=== PATIENT | male | born 1955 | race Caucasian/White ===

== ENCOUNTER 2019-05-29 16:04 | Outpatient (CLI) | payer MEDICARE, SELFPAY ==
[2019-05-29 19:12] LABS: Blood Urea Nitrogen 23 mg/dL (9-20); Calcium 9.4 mg/dL (8.4-10.2); Carbon Dioxide 26 mmol/L (22-30); Chloride 101 mmol/L (98-107); Estimated Glomerular Filt Rate > 60; Glucose 87 mg/dL (75-110); Potassium 4.6 mmol/L (3.4-5.0); Sodium 137 mmol/L (137-145)
== END 2019-05-29 16:05 | disposition home or self-care (01) ==
LOC: ANHLAB 16:06
PROVIDERS: PCP Family Medicine; Visit Provider Physician Assistant Medical
DX: E87.5 Hyperkalemia (principal)
CPT/HCPCS: 36415; 80048

== ENCOUNTER 2019-07-02 11:22 | Emergency (ER) | payer MEDICARE, SELFPAY ==
--- NOTE | ~2019-07-02 | XR_ITS ---
XR chest 2V DATE: 07/02/2019 12:27 INDICATION: Productive cough, shortness of breath. Smoker. TECHNIQUE: 2 views COMPARISON: 06/24/2014 2 view chest 06/21/2012 two-view chest FINDINGS: There is chronic increased density in the region of the left lower cardiac margin, dating b ack to 06/21/2012, likely due to cardiophrenic fat pad. No pulmonary infiltrate or consolidation, pleural effusion or pulmonary vascular congestion or pneumo thorax. Normal heart size. No hilar or mediastinal enlargement. Diffuse idiopathic skeletal hyperostosis of the thoracic spine. IMPRESSION: No active cardiopulmonary disease Reviewed, dictated and finalized at location A.
[2019-07-02 11:32] VITALS: BP 150/66; PULSE 76; RESP 18; TEMP 36.9; O2SAT 98
--- NOTE | 2019-07-02 11:57 | ED.URI ---
HPI - URI/Sore Throat General Chief Complaint: Upper Respiratory Infection Stated Complaint: Cough Time Seen by Provider: 07/02/19 12:06 Source: patient and RN notes reviewed Mode of arrival: ambulatory Limitations: no limitations History of Present Illness HPI Narrative: 64-year-old male presents with concern for fever, body aches, chills, cough for 10 days, he reports most of the symptoms are improving. Reports continuous copious clear rhinorrhea, reports cough, general malaise and fatigue. Reports he is a current occasional smoker. Denies history of emphysema, COPD, asthma. Denies current fever MD elicited complaint: cough and rhinorrhea Related Data Home Medications Medication Instructions Recorded Confirmed nitroglycerin 0.4 mg sublingual 0.4 mg SUBLINGUAL Q5M PRN 05/06/19 07/02/19 tablet Allergies Allergy/AdvReac Type Severity Reaction Status Date / Time No Known Allergies Allergy Unknown Verified 07/02/19 11:37 Review of Systems Review of Systems: Narrative: CONSTITUTIONAL: Reports malaise, fatigue. Denies chills, sweats, or fever. EYES: Denies visual changes, redness, or discharge. ENT: Reports rhinorrhea. Denies congestion, sinus pain, otalgia and sore throat. CARDIOVASCULAR: Denies chest pain, palpitations, or edema. RESPIRATORY: Reports cough. Denies dyspnea. GASTROINTESTINAL: Denies abdominal pain, nausea, vomiting, diarrhea SKIN: Denies rash or itching. MUSCULOSKELETAL: Denies myalgia. NEUROLOGIC: Denies headache. All systems reviewed & are unremarkable except as noted in HPI and below PMFSH Family History Family History (Updated 11/15/15 @ 23:19 by DOCTOR UNKNOWN) Father Hypertension Mother Family history of malignant neoplasm of breast in first degree relative Social History Social History Smoking status: Light tobacco smoker Alcohol intake: never Comments At time of signature, agree with nursing past medical, surgical, social and family history. There is no relevant family history pertinent to the presenting complaint Exam Narrative: Exam Narrative: GENERAL: Well-appearing, well-nourished, and in no acute distress. HEAD: Normocephalic EYES: PERRLA, conjunctivae clear ENT: Nares clear, turbinates edematous and erythematous, clear discharge. Mucous membranes moist. TM pearly martini with dull light reflex bilaterally; no tragal tenderness. Oropharynx not erythematous without lesions. Tonsils not enlarged and without exudate, no drooling, no hoarseness, no trismus, uvula midline. NECK: Supple. No lymphadenopathy CHEST: Scattered inspiratory and expiratory wheeze throughout, breath sounds equal. No rhonchi, rales, or stridor. No respiratory distress, speaks in full sentences. HEART: Regular rate and rhythm. No murmur heard. SKIN: Warm, dry, no rash. NEURO: Alert and oriented x3. PSYCH: Normal mood and affect Course Course Emergency Course: Patient is aware of diagnosis, understands and agrees to treatment plan. Anticipatory guidance given. Patient agrees to follow-up as directed and is aware of reasons to seek care at the emergency department. Portions of this record may have been created with voice recognition software Vital Signs Vital signs: Vital Signs Temperature 98.4 F 07/02/19 11:32 Pulse Rate 76 07/02/19 11:32 Respiratory Rate 18 07/02/19 11:32 Blood Pressure 150/66 H 07/02/19 11:32 Pulse Oximetry 98 07/02/19 11:32 Temperature 98.4 F 07/02/19 11:32 Pulse Rate 76 07/02/19 11:32 Respiratory Rate 18 07/02/19 11:32 Blood Pressure 150/66 H 07/02/19 11:32 Pulse Oximetry 98 07/02/19 11:32 Reviewed. Patient has current diagnosis of hypertension MDM - URI/Sore Throat MDM Narrative Medical decision making narrative: Differential diagnosis considered: Strep pharyngitis, allergic rhinitis, upper respiratory tract infection, sinusitis, rhinosinusitis, nasopharyngitis. viral pharyngitis, otitis media, otitis externa, pneumonia, bronchitis, v
== END 2019-07-02 13:10 | disposition home or self-care (01) ==
PROVIDERS: Emergency Provider Nurse Practitioner; PCP Family Medicine
DX: R06.2 Wheezing (principal); J34.89 Other specified disorders of nose and nasal sinuses; F17.200 Nicotine dependence, unspecified, uncomplicated; I10 Essential (primary) hypertension
CPT/HCPCS: 71046; 99213; G0463

== ENCOUNTER 2020-07-17 06:45 | Outpatient (CLI) | payer MEDICARE, SELFPAY ==
--- NOTE | 2020-07-17 06:46 | ECHO_ITS ---
Patient Info Name: Dayne Good Age: 65 years : 1955 Gender: Male Ht: 70 in Wt: 280 lbs BSA: 2.56 m2 HR: 61 bpm BP: 152 / 89 mmHg Heart Rhythm: Sinus Rhythm Exam Date: 07/17/2020 7:11 AM Exam Location: [facility] Pulmonary Patient Status: Outpatient Admit Date: 07/17/2020 Staff Ordering Physician: Zara Bowden PAC [place] Man: Namita Hoskins RDCS Attending Provider: Zara Bowden PAC Exam Type: CA echo doppler color flow Study Info Indications R01.1 - Cardiac murmur, unspecified Complete two-dimensional, color flow and Doppler transthoracic echocardiogram is performed. Summary 1. Complete two-dimensional, color flow and Doppler transthoracic echocardiogram is performed. 2. Left ventricular chamber dimension is mildly enlarged. 3. Left ventricular systolic function is normal, estimated at 60-65%. 4. The left ventricular diastolic function is grade II diastolic dysfunction. 5. E/e' 9 is minimally elevated. 6. There is mild aortic valve sclerosis. 7. There is mild to moderate aortic valve regurgitation. 8. No pulmonary hypertension, estimated pulmonary arterial systolic pressure is 39 mmHg. Left Ventricle E/e' 9 is minimally elevated. Left ventricular chamber dimension is mildly enlarged. Left ventricular systolic function is normal, estimated at 60-65%. The left ventricular diastolic function is grade II diastolic dysfunction. Right Ventricle Right ventricular chamber dimension is normal. Right ventricular systolic function is normal. Left Atria Left atrial chamber dimension is normal. Right Atria Right atrial chamber dimension is normal. Aortic Valve The aortic valve is trileaflet. There is mild aortic valve sclerosis. There is no aortic valve stenosis. There is mild to moderate aortic valve regurgitation. Pulmonic Valve There is no pulmonic regurgitation. Mitral Valve There is no mitral valve stenosis. There is no mitral valve regurgitation. Tricuspid Valve There is no tricuspid valve regurgitation. No pulmonary hypertension, estimated pulmonary arterial systolic pressure is 39 mmHg. Pericardium/Pleural There is no pericardial effusion. Inferior Vena Cava Normal inferior vena cava with >50% collapse upon inspiration consistent with normal right atrial pressure, 5 mmHg. Aorta The aortic root size at the sinus of Valsalva is normal. Left Ventricular Outflow Tract Name Value Normal LVOT 2D LVOT Diameter 2.2 cm LVOT Doppler LVOT Peak Gradient 4 mmHg LVOT Mean Gradient 2 mmHg LVOT VTI 26 cm LVOT VTI/AV VTI Ratio 0.4 LVOT Stroke Volume 102 ml LVOT CO 5.2 l/min LVOT CI 2.0 l/min/m2 Pulmonic Valve Name Value Normal RVOT Doppler
[2020-07-17 07:58] LABS: Alanine Aminotransferase 17 U/L (4-50); Alkaline Phosphatase 95 U/L (38-126); Anion Gap 3 mmol/L (8-16); Aspartate Amino Transferase 26 U/L (17-59); Bilirubin,Total 0.3 mg/dL (0.2-1.3); Blood Urea Nitrogen 20 mg/dL (9-20); Calcium 9.1 mg/dL (8.4-10.2); Carbon Dioxide 31 mmol/L (22-30); Chloride 106 mmol/L (98-107); Cholesterol 153 mg/dL (0-200); Estimated Glomerular Filt Rate 55; Glucose 101 mg/dL (75-110); HDL Direct 41 mg/dL; Potassium 4.9 mmol/L (3.4-5.0); Sodium 140 mmol/L (137-145); Triglycerides 53 mg/dL (<150)
[2020-07-17 08:09] LABS: LDL Cholesterol Direct 98 mg/dL
[2020-07-17 08:30] LABS: Prostate Specific Antigen 1.6 ng/mL (< OR = 4.0)
[2020-07-17 09:20] LABS: Hematocrit 48.5 % (42.0-52.0); Hemoglobin 15.4 g/dL (14.0-18.0); Mean Corpuscular HGB Conc 31.8 g/dl (32-36); Mean Corpuscular Hemoglobin 30.3 pg (26-34); Mean Corpuscular Volume 95.3 fl (80-100); Mean Platelet Volume 9.6 fl (7.4-10.4); Platelet Count Result 270 k/mm3 (150-375); Red Blood Count 5.09 M/mm3 (4.6-6.20); Red Cell Distribution Width 14.2 % (11.5-14.5)
== END 2020-07-17 06:46 | disposition home or self-care (01) ==
LOC: ANHCARD 06:46
PROVIDERS: PCP Family Medicine; Visit Provider Physician Assistant Medical
DX: Z12.5 Encounter for screening for malignant neoplasm of prostate (principal); R01.1 Cardiac murmur, unspecified; E78.2 Mixed hyperlipidemia; I11.9 Hypertensive heart disease without heart failure; I35.1 Nonrheumatic aortic (valve) insufficiency; I70.0 Atherosclerosis of aorta
CPT/HCPCS: 36415; 80053; 80061; 84153; 85027; 93306; G0103

== ENCOUNTER 2020-08-26 10:18 | Outpatient (CLI) | payer MEDICARE, SELFPAY ==
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
== END 2020-08-26 10:19 | disposition home or self-care (01) ==
LOC: ANHIMG 10:19
PROVIDERS: PCP Family Medicine; Visit Provider Internal Medicine Cardiovascular Disease
DX: I65.23 Occlusion and stenosis of bilateral carotid arteries (principal); I25.10 Atherosclerotic heart disease of native coronary artery without angina pectoris
CPT/HCPCS: 93880

== ENCOUNTER 2021-08-28 18:08 | Emergency (ER) | payer MEDICARE, SELFPAY ==
--- NOTE | ~2021-08-28 | XR_ITS ---
EXAMINATION: XR facial bones min 3V DATE: 08/28/2021 18:30 INDICATION: Left-sided nasal pain. Nasal swelling. Injury. TECHNIQUE: 5 views of the facial bones were obtained. COMPARISON: None. FINDINGS: Bone alignment is normal. There are transverse fractures of the nasal bones. There is opaci fication of the paranasal sinuses, worst in left maxillary sinus. IMPRESSION: 1. Fractures of the nasal bones. Reviewed, dictated and finalized at location A.
[2021-08-28 18:10] VITALS: BP 178/82; PULSE 92; RESP 17; TEMP 36.4; O2SAT 100
[2021-08-28 21:34] VITALS: PULSE 83; RESP 20; O2SAT 95
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
== END 2021-08-28 21:36 | disposition home or self-care (01) ==
LOC: ANHED 21:27
PROVIDERS: Emergency Provider Emergency Medicine; PCP Family Medicine
DX: S02.2XXA Fracture of nasal bones, initial encounter for closed fracture (principal); F17.210 Nicotine dependence, cigarettes, uncomplicated; Y04.2XXA Assault by strike against or bumped into by another person, initial encounter
CPT/HCPCS: 70150; 99283

== ENCOUNTER 2022-10-08 07:35 | Outpatient (CLI) | payer MEDICARE, SELFPAY ==
[2022-10-08 07:59] LABS: Basophils Absolute Auto 0.1 K/mm3 (0.0-0.1); Eosinophils Absolute Auto 0.3 K/mm3 (0-0.3); Eosinophils Percent Auto 3.7 % (0-4.4); Hemoglobin 15.9 g/dL (14.0-18.0); Immature Granulocyte Absolute 0.02 K/mm3 (0.00-0.031); Immature Granulocyte Percent A 0.3 % (0-0.5); Lymphocytes Absolute Auto 1.96 K/mm3 (0.9-3.2); Lymphocytes Percent Auto 27.1 % (18.3-44.2); Mean Corpuscular HGB Conc 31.8 g/dl (32-36); Mean Corpuscular Hemoglobin 31.3 pg (26-34); Mean Corpuscular Volume 98.4 fl (80-100); Monocytes Absolute Auto 0.6 K/mm3 (0.1-0.6); Monocytes Percent Auto 7.6 % (2.6-8.5); Neutrophils Absolute Auto 4.4 K/mm3 (1.3-6.7); Neutrophils Percent Auto 60.3 % (45.5-73.1); Platelet Count Result 234 k/mm3 (150-375); Red Blood Count 5.08 M/mm3 (4.6-6.20); Red Cell Distribution Width 13.7 % (11.5-14.5); White Blood Count 7.2 K/mm3 (4.5-10.0)
[2022-10-08 08:10] LABS: Alanine Aminotransferase 21 U/L (6-50); Albumin Level 4.4 g/dL (3.5-5.1); Alkaline Phosphatase 96 U/L (38-126); Anion Gap 5 mmol/L (8-16); Aspartate Amino Transferase 33 U/L (17-59); Bilirubin,Total 0.9 mg/dL (0.2-1.3); Blood Urea Nitrogen 13 mg/dL (9-20); Calcium 9.1 mg/dL (8.4-10.2); Carbon Dioxide 33 mmol/L (22-30); Chloride 101 mmol/L (98-107); Cholesterol 170 mg/dL (0-200); Estimated Glomerular Filt Rate > 60; Glucose 107 mg/dL (65-110); HDL Direct 43 mg/dL; Potassium 5.2 mmol/L (3.4-5.0); Sodium 139 mmol/L (137-145); Triglycerides 91 mg/dL (<150)
[2022-10-08 08:20] LABS: LDL Cholesterol Direct 112 mg/dL
[2022-10-08 08:40] LABS: Prostate Specific Antigen 1.2 ng/mL (< OR = 4.0)
== END 2022-10-08 07:36 | disposition home or self-care (01) ==
PROVIDERS: PCP Family Medicine; Visit Provider Family Medicine
DX: Z12.5 Encounter for screening for malignant neoplasm of prostate (principal); Z13.220 Encounter for screening for lipoid disorders; Z13.0 Encounter for screening for diseases of the blood and blood-forming organs and certain disorders involving the immune mechanism; E78.5 Hyperlipidemia, unspecified
CPT/HCPCS: 36415; 80053; 80061; 84153; 85025; G0103

== ENCOUNTER 2024-06-18 18:34 | Emergency (ER) | payer MEDICARE, SELFPAY ==
[2024-06-18 18:46] VITALS: BP 137/69; PULSE 83; RESP 16; TEMP 36.3; O2SAT 98
[2024-06-18 20:49] LABS: Basophils Percent Auto 0.3 % (0.2-1.2); Eosinophils Absolute Auto 0.1 K/mm3 (0-0.3); Eosinophils Percent Auto 0.5 % (0-4.4); Hematocrit 49.4 % (42.0-52.0); Hemoglobin 16.4 g/dL (14.0-18.0); Immature Granulocyte Percent A 1.1 % (0-0.5); Lymphocytes Absolute Auto 1.23 K/mm3 (0.9-3.2); Mean Corpuscular HGB Conc 33.2 g/dl (32-36); Mean Corpuscular Hemoglobin 30.7 pg (26-34); Mean Corpuscular Volume 92.5 fl (80-100); Mean Platelet Volume 9.8 fl (7.4-10.4); Monocytes Absolute Auto 0.8 K/mm3 (0.1-0.6); Monocytes Percent Auto 8.2 % (2.6-8.5); Neutrophils Absolute Auto 7.3 K/mm3 (1.3-6.7); Neutrophils Percent Auto 76.9 % (45.5-73.1); Platelet Count Result 294 k/mm3 (150-375); Red Blood Count 5.34 M/mm3 (4.6-6.20); Red Cell Distribution Width 14.3 % (11.5-14.5); White Blood Count 9.4 K/mm3 (4.5-10.0)
[2024-06-18 20:54] LABS: Influenza A QL RT-PCR Negative (Negative); Influenza B QL RT-PCR Negative (Negative); RSV RNA, RT-PCR Negative (Negative); SARS-CoV-2 RNA PCR Negative (Negative)
--- NOTE | 2024-06-18 20:54 | ED.GENADULT ---
HPI - General Adult General Chief complaint: Unspecified <Pricila Juarez PA-C - Last Filed: 06/20/24 18:15> Stated complaint: sick for days <Pricila Juarez PA-C - Last Filed: 06/20/24 18:15> Time Seen by Provider: 06/18/24 20:12 <Pricila Juarez PA-C - Last Filed: 06/20/24 18:15> Source: patient <Pricila Juarez PA-C - Last Filed: 06/20/24 18:15> Mode of arrival: ambulatory <Pricila Juarez PA-C - Last Filed: 06/20/24 18:15> Limitations: no limitations <Pricila Juarez PA-C - Last Filed: 06/20/24 18:15> History of Present Illness HPI narrative: This is a 69-year-old male that presents to the emergency department for generalized weakness. Reports he has been ill over the last week. Reports decreased appetite, nausea. Reports myalgias. Reports a cough diarrhea. Denies fevers, vomiting. <Pricila Juarez PA-C - Last Filed: 06/20/24 18:15> Related Data Allergies/adverse reactions: Allergies Allergy/AdvReac Type Severity Reaction Status Date / Time [id number] Reductase AdvReac Intermediate muscle Verified 06/18/24 20:14 Inhibitor (Silzrvb-Utw-Ytq aches Reductase Inhibitor) <Pricila Juarez PA-C - Last Filed: 06/20/24 18:15> Review of Systems Review of Systems: CONSTITUTIONAL: Denies fever ENT: Denies rhinorrhea, congestion, sore throat RESPIRATORY: Reports cough GASTROINTESTINAL: Reports nausea and diarrhea. Denies abdominal pain, vomiting GENITOURINARY: Denies dysuria NEUROLOGIC: Reports weakness. <Pricila Juarez PA-C - Last Filed: 06/20/24 18:15> All systems reviewed & are unremarkable except as noted in HPI and below <Pricila Juarez PA-C - Last Filed: 06/20/24 18:15> [facility] Past Medical History Medical History: Medical History (Updated 06/20/24 @ 09:20 by Pricila Juarez PA-C) Chronic knee pain Coronary artery disease Groin pain BMI 36.0-36.9,adult BMI 34.0-34.9,adult COVID-19 BMI 37.0-37.9, adult BMI 38.0-38.9,adult <Pricila Juarez PA-C - Last Filed: 06/20/24 18:15> Surgical History Surgical History: Surgical History History of nasal surgery History of tooth extraction <Pricila Juarez PA-C - Last Filed: 06/20/24 18:15> Family History Family History: Family History Father Hypertension Mother Family history of malignant neoplasm of breast in first degree relative Sibling <Pricila Juarez PA-C - Last Filed: 06/20/24 18:15> Social History Social History: Social History Smoking packs per day: 0.50 Smoking cigarettes per day: 10.0 Years smoked: 30 Smoking pack-years: 15.00 Smoking status: Current every day smoker Tobacco type: cigarettes Second hand tobacco smoke exposure: No Alcohol intake: current Substance use: never Substance use type: does not use Living arrangements: alone Occupation/Education: retired Additional occupation/education comments: [employer] Gender identity (if verbalized by the patient): Male <Pricila Juarez PA-C - Last Filed: 06/20/24 18:15> Exam Narrative: GENERAL: Well-appearing, well-nourished, and in no acute distress. HEAD: Normocephalic, atraumatic. EYES: EOMI. ENT: Nares clear, no rhinorrhea or epistaxis. Mucous membranes moist. Oropharynx without tonsillar hypertrophy exudate or other lesions. Bilateral TMs pearly martini non-bulging NECK: Supple. No adenopathy or masses. CHEST: Clear to auscultation. No respiratory distress. No wheezes rales or rhonchi HEART: Regular rate and rhythm. No murmur heard. Normal peripheral pulses. ABDOMEN: Soft, nontender, nondistended, normal active bowel sounds. EXTREMITIES: Normal range of motion. No edema. SKIN: Warm, dry, no rash. NEURO: No focal deficits. Alert and oriented x3. PSYCH: Normal mood and affect <Pricila Juarez PA-C - Last Filed: 06/20/24 18:15> Course PROFESSOR OF MUSIC/PA Physician Supervision For this patient encounter, I reviewed the PROFESSOR OF MUSIC or PA documentation, treatment plan, and medical decision making; and I had [id number] time with this patient. <Israel Maldonado MD - Last Filed: 06/19/24 07:20> Consultations Consultation #1: Spoke with Dr. Jw hamm about findings of possible esophageal perforation, recommends transfer for higher level of care <Pricila Juarez PA-C - Last Filed: 06/20/24 18:15> Date: 06/19/24 <Pricila Juarez PA-C - Last Filed: 06/20/24 18:15> Vital Signs Vital signs: Vital Signs Temperature 97.4 F L 06/18/24 18:46 Pulse Rate 83 06/18/24 18:46 Respiratory Rate 16 06/18/24 18:46 Blood Pressure 137/69 06/18/24 18:46 Pulse Oximetry 98 06/18/24 18:46 Oxygen Delivery Room Air 06/18/24 18:46 Temperature 97.6 F 06/19/24 07:33 Pulse Rate 88 06/19/24 07:33 Respiratory Rate 17 06/19/24 07:33 Blood Pressure 122/65 06/19/24 07:33 Pulse Oximetry 96 06/19/24 07:33 Oxygen Delivery Nasal Cannula 06/19/24 04:49 Oxygen Flow Rate 2 06/19/24 04:49 <Pricila Juarez PA-C - Last Filed: 06/20/24 18:15> Vital Signs Temperature 97.4 F L 06/18/24 18:46 Pulse Rate 83 06/18/24 18:46 Respiratory Rate 16 06/18/24 18:46 Blood Pressure 137/69 06/18/24 18:46 Pulse Oximetry 98 06/18/24 18:46 Oxygen Delivery Room Air 06/18/24 18:46 Temperature 97.6 F 06/19/24 07:33 Pulse Rate 88 06/19/24 07:33 Respiratory Rate 17 06/19/24 07:33 Blood Pressure 122/65 06/19/24 07:33 Pulse Oximetry 96 06/19/24 07:33 Oxygen Delivery Nasal Cannula 06/19/24 04:49 Oxygen Flow Rate 2 06/19/24 04:49 <Israel Maldonado MD - Last Filed: 06/19/24 07:20> Medical Decision Making MDM Narrative Medical decision making narrative: Patient presents to the emergency department for epigastric discomfort, decreased appetite, nausea. Patient is afebrile and nontoxic appearing. Cbc without leukocytosis. Metabolic panel without evidence of acute kidney injury and dehydration. Lipase is normal. Urine without evidence of infection. CT abdomen pelvis showing findings of gastritis, left lower lobe pneumonia. Possible evidence of contained esophageal perforation. Spoke with Dr. Jw hamm about findings of possible esophageal perforation, recommends transfer for higher level of care. I have reached out to [facility] for transfer. Care taken over by Dr. Maldonado at shift change The case was discussed with Dr. Porter with cardiothoracic surgery at [facility] and the patient was accepted and is currently waiting on a bed Radiology reread this CT scan in showed no evidence of perforation and just esophageal diverticula. <Pricila Juarez PA-C - Last Filed: 06/20/24 18:15> The case was discussed with Dr. Porter with cardiothoracic surgery at [facility] and the patient was accepted and is currently waiting on a bed Radiology reread this CT scan in showed no evidence of perforation and just esophageal diverticula. <Israel Maldonado MD - Last Filed: 06/19/24 07:20> Vital Signs Vital Signs: Vital Signs Temperature 97.4 F L 06/18/24 18:46 Pulse Rate 83 06/18/24 18:46 Respiratory Rate 16 06/18/24 18:46 Blood Pressure 137/69 06/18/24 18:46 Pulse Oximetry 98 06/18/24 18:46 Oxygen Delivery Room Air 06/18/24 18:46 Temperature 97.6 F 06/19/24 07:33 Pulse Rate 88 06/19/24 07:33 Respiratory Rate 17 06/19/24 07:33 Blood Pressure 122/65 06/19/24 07:33 Pulse Oximetry 96 06/19/24 07:33 Oxygen Delivery Nasal Cannula 06/19/24 04:49 Oxygen Flow Rate 2 06/19/24 04:49 <Pricila Juarez PA-C - Last Filed: 06/20/24 18:15> Vital Signs Temperature 97.4 F L 06/18/24 18:46 Pulse Rate 83 06/18/24 18:46 Respiratory Rate 16 06/18/24 18:46 Blood Pressure 137/69 06/18/24 18:46 Pulse Oximetry 98 06/18/24 18:46 Oxygen Delivery Room Air 06/18/24 18:46 Temperature 97.6 F 06/19/24 07:33 Pulse Rate 88 06/19/24 07:33 Respiratory Rate 17 06/19/24 07:33 Blood Pressure 122/65 06/19/24 07:33 Pulse Oximetry 96 06/19/24 07:33 Oxygen Delivery Nasal Cannula 06/19/24 04:49 Oxygen Flow Rate 2 06/19/24 04:49 <Israel Maldonado MD - Last Filed: 06/19/24 07:20> Lab Data Lab results reviewed: Yes I reviewed the patient's lab results. <Pricila Juarez PA-C - Last Filed: 06/20/24 18:15> Result diagrams: 06/18/24 20:40 06/18/24 20:40 <Pricila Juarez PA-C - Last Filed: 06/20/24 18:15> Labs: Lab Results 06/18/24 06/18/24 06/18/24 Range/Units 20:12 20:39 20:40 WBC 9.4 (4.5-10.0) K/mm3 RBC 5.34 (4.6-6.20) M/mm3 Hgb 16.4 (14.0-18.0) g/dL Hct 49.4 (42.0-52.0) % MCV 92.5 (80-100) fl MCH 30.7 (26-34) pg MCHC 33.2 (32-36) g/dl RDW 14.3 (11.5-14.5) % Plt Count 294 (150-375) k/mm3 MPV 9.8 (7.4-10.4) fl Immature Gran % (Auto) 1.1 H (0-0.5) % Neut % (Auto) 76.9 H (45.5-73.1) % Lymph % (Auto) 13.0 L (18.3-44.2) % Frio % (Auto) 8.2 (2.6-8.5) % Eos % (Auto) 0.5 (0-4.4) % Baso % (Auto) 0.3 (0.2-1.2) % Lymph # (Auto) 1.23 (0.9-3.2) K/mm3 Frio # (Auto) 0.8 H (0.1-0.6) K/mm3 Eos # (Auto) 0.1 (0-0.3) K/mm3 Baso # (Auto) 0.0 (0.0-0.1) K/mm3 Abs Immat Gran (auto) 0.10 H (0.00-0.031) K/mm3 Absolute Neuts (auto) 7.3 H (1.3-6.7) K/mm3 Absolute Nucleated RBC 0.000 (0.0-0.012) K/mm3 Nucleated RBC % 0.0 (0.0-0.2) % Sodium 136 L (137-145) mmol/L Potassium 4.2 (3.4-5.0) mmol/L Chloride 100 (98-107) mmol/L Carbon Dioxide 21 L (22-30) mmol/L Anion Gap 15 H (4-12) mmol/L BUN 52 H D (9-20) mg/dL Creatinine 1.66 H (0.7-1.3) mg/dL Estim Creat Clear Calc 48 ml/min Estimated GFR 41 L (59 - ) Glucose 117 H (65-110) mg/dL Calcium 9.9 (8.4-10.2) mg/dL Total Bilirubin 0.9 (0.2-1.3) mg/dL AST 237 H (17-59) U/L ALT 237 H (6-50) U/L Alkaline Phosphatase 136 H (38-126) U/L Total Creatine Kinase 73 (55-170) U/L Total Protein 8.0 (6.3-8.2) g/dL Albumin 3.9 (3.5-5.1) g/dL Lipase 173 (23-300) U/L Urine Color (Yellow) Urine Appearance (Clear) Urine pH (5.0-9.0) Ur Specific Valier (1.001-1.035) Urine Protein (Negative) mg/dL Urine Glucose (UA) (Negative) mg/dL Urine Ketones (Negative) mg/dL Ur Blood (Man) (Negative) Urine Nitrate (Negative) Urine Bilirubin (Negative) Urine Urobilinogen (<2.0) mg/dL Add Ur Microanalysis Leukocyte Esterase Rfl (Negative) YUDI/UL Urine RBC (0-2) /hpf Urine WBC (0-3) /hpf Ur Squamous Epith Cells (Few) /hpf Urine Bacteria /hpf Urine Casts Influenza A (RT-PCR) Negative (Negative) Influenza B (RT-PCR) Negative (Negative) RSV (RT-PCR) Negative (Negative) SARS-CoV-2 RNA (RT-PCR) Negative (Negative) 06/18/24 Range/Units 20:43 WBC (4.5-10.0) K/mm3 RBC (4.6-6.20) M/mm3 Hgb (14.0-18.0) g/dL Hct (42.0-52.0) % MCV (80-100) fl MCH (26-34) pg MCHC (32-36) g/dl RDW (11.5-14.5) % Plt Count (150-375) k/mm3 MPV (7.4-10.4) fl Immature Gran % (Auto) (0-0.5) % Neut % (Auto) (45.5-73.1) % Lymph % (Auto) (18.3-44.2) % Frio % (Auto) (2.6-8.5) % Eos % (Auto) (0-4.4) % Baso % (Auto) (0.2-1.2) % Lymph # (Auto) (0.9-3.2) K/mm3 Frio # (Auto) (0.1-0.6) K/mm3 Eos # (Auto) (0-0.3) K/mm3 Baso # (Auto) (0.0-0.1) K/mm3 Abs Immat Gran (auto) (0.00-0.031) K/mm3 Absolute Neuts (auto) (1.3-6.7) K/mm3 Absolute Nucleated RBC (0.0-0.012) K/mm3 Nucleated RBC % (0.0-0.2) % Sodium (137-145) mmol/L Potassium (3.4-5.0) mmol/L Chloride (98-107) mmol/L Carbon Dioxide (22-30) mmol/L Anion Gap (4-12) mmol/L BUN (9-20) mg/dL Creatinine (0.7-1.3) mg/dL Estim Creat Clear Calc ml/min Estimated GFR (59 - ) Glucose (65-110) mg/dL Calcium (8.4-10.2) mg/dL Total Bilirubin (0.2-1.3) mg/dL AST (17-59) U/L ALT (6-50) U/L Alkaline Phosphatase (38-126) U/L Total Creatine Kinase (55-170) U/L Total Protein (6.3-8.2) g/dL Albumin (3.5-5.1) g/dL Lipase (23-300) U/L Urine Color Dark yellow (Yellow) Urine Appearance Cloudy H (Clear) Urine pH 5.0 (5.0-9.0) Ur Specific Valier 1.017 (1.001-1.035) Urine Protein Trace (Negative) mg/dL Urine Glucose (UA) Negative (Negative) mg/dL Urine Ketones Trace H (Negative) mg/dL Ur Blood (Man) 2+ H (Negative) Urine Nitrate Negative (Negative) Urine Bilirubin Negative (Negative) Urine Urobilinogen 1.0 (<2.0) mg/dL Add Ur Microanalysis Reviewed Leukocyte Esterase Rfl Negative (Negative) YUDI/UL Urine RBC 11-20 H (0-2) /hpf Urine WBC 0-5 (0-3) /hpf Ur Squamous Epith Cells Few (Few) /hpf Urine Bacteria None seen /hpf Urine Casts 11-20 Influenza A (RT-PCR) (Negative) Influenza B (RT-PCR) (Negative) RSV (RT-PCR) (Negative) SARS-CoV-2 RNA (RT-PCR) (Negative) <Pricila Juarez PA-C - Last Filed: 06/20/24 18:15> Lab Results 06/18/24 06/18/24 06/18/24 Range/Units 20:12 20:39 20:40 WBC 9.4 (4.5-10.0) K/mm3 RBC 5.34 (4.6-6.20) M/mm3 Hgb 16.4 (14.0-18.0) g/dL Hct 49.4 (42.0-52.0) % MCV 92.5 (80-100) fl MCH 30.7 (26-34) pg MCHC 33.2 (32-36) g/dl RDW 14.3 (11.5-14.5) % Plt Count 294 (150-375) k/mm3 MPV 9.8 (7.4-10.4) fl Immature Gran % (Auto) 1.1 H (0-0.5) % Neut % (Auto) 76.9 H (45.5-73.1) % Lymph % (Auto) 13.0 L (18.3-44.2) % Frio % (Auto) 8.2 (2.6-8.5) % Eos % (Auto) 0.5 (0-4.4) % Baso % (Auto) 0.3 (0.2-1.2) % Lymph # (Auto) 1.23 (0.9-3.2) K/mm3 Frio # (Auto) 0.8 H (0.1-0.6) K/mm3 Eos # (Auto) 0.1 (0-0.3) K/mm3 Baso # (Auto) 0.0 (0.0-0.1) K/mm3 Abs Immat Gran (auto) 0.10 H (0.00-0.031) K/mm3 Absolute Neuts (auto) 7.3 H (1.3-6.7) K/mm3 Absolute Nucleated RBC 0.000 (0.0-0.012) K/mm3 Nucleated RBC % 0.0 (0.0-0.2) % Sodium 136 L (137-145) mmol/L Potassium 4.2 (3.4-5.0) mmol/L Chloride 100 (98-107) mmol/L Carbon Dioxide 21 L (22-30) mmol/L Anion Gap 15 H (4-12) mmol/L BUN 52 H D (9-20) mg/dL Creatinine 1.66 H (0.7-1.3) mg/dL Estim Creat Clear Calc 48 ml/min Estimated GFR 41 L (59 - ) Glucose 117 H (65-110) mg/dL Calcium 9.9 (8.4-10.2) mg/dL Total Bilirubin 0.9 (0.2-1.3) mg/dL AST 237 H (17-59) U/L ALT 237 H (6-50) U/L Alkaline Phosphatase 136 H (38-126) U/L Total Creatine Kinase 73 (55-170) U/L Total Protein 8.0 (6.3-8.2) g/dL Albumin 3.9 (3.5-5.1) g/dL Lipase 173 (23-300) U/L Urine Color (Yellow) Urine Appearance (Clear) Urine pH (5.0-9.0) Ur Specific Valier (1.001-1.035) Urine Protein (Negative) mg/dL Urine Glucose (UA) (Negative) mg/dL Urine Ketones (Negative) mg/dL Ur Blood (Man) (Negative) Urine Nitrate (Negative) Urine Bilirubin (Negative) Urine Urobilinogen (<2.0) mg/dL Add Ur Microanalysis Leukocyte Esterase Rfl (Negative) YUDI/UL Urine RBC (0-2) /hpf Urine WBC (0-3) /hpf Ur Squamous Epith Cells (Few) /hpf Urine Bacteria /hpf Urine Casts Influenza A (RT-PCR) Negative (Negative) Influenza B (RT-PCR) Negative (Negative) RSV (RT-PCR) Negative (Negative) SARS-CoV-2 RNA (RT-PCR) Negative (Negative) 06/18/24 Range/Units 20:43 WBC (4.5-10.0) K/mm3 RBC (4.6-6.20) M/mm3 Hgb (14.0-18.0) g/dL Hct (42.0-52.0) % MCV (80-100) fl MCH (26-34) pg MCHC (32-36) g/dl RDW (11.5-14.5) % Plt Count (150-375) k/mm3 MPV (7.4-10.4) fl Immature Gran % (Auto) (0-0.5) % Neut % (Auto) (45.5-73.1) % Lymph % (Auto) (18.3-44.2) % Frio % (Auto) (2.6-8.5) % Eos % (Auto) (0-4.4) % Baso % (Auto) (0.2-1.2) % Lymph # (Auto) (0.9-3.2) K/mm3 Frio # (Auto) (0.1-0.6) K/mm3 Eos # (Auto) (0-0.3) K/mm3 Baso # (Auto) (0.0-0.1) K/mm3 Abs Immat Gran (auto) (0.00-0.031) K/mm3 Absolute Neuts (auto) (1.3-6.7) K/mm3 Absolute Nucleated RBC (0.0-0.012) K/mm3 Nucleated RBC % (0.0-0.2) % Sodium (137-145) mmol/L Potassium (3.4-5.0) mmol/L Chloride (98-107) mmol/L Carbon Dioxide (22-30) mmol/L Anion Gap (4-12) mmol/L BUN (9-20) mg/dL Creatinine (0.7-1.3) mg/dL Estim Creat Clear Calc ml/min Estimated GFR (59 - ) Glucose (65-110) mg/dL Calcium (8.4-10.2) mg/dL Total Bilirubin (0.2-1.3) mg/dL AST (17-59) U/L ALT (6-50) U/L Alkaline Phosphatase (38-126) U/L Total Creatine Kinase (55-170) U/L Total Protein (6.3-8.2) g/dL Albumin (3.5-5.1) g/dL Lipase (23-300) U/L Urine Color Dark yellow (Yellow) Urine Appearance Cloudy H (Clear) Urine pH 5.0 (5.0-9.0) Ur Specific Valier 1.017 (1.001-1.035) Urine Protein Trace (Negative) mg/dL Urine Glucose (UA) Negative (Negative) mg/dL Urine Ketones Trace H (Negative) mg/dL Ur Blood (Man) 2+ H (Negative) Urine Nitrate Negative (Negative) Urine Bilirubin Negative (Negative) Urine Urobilinogen 1.0 (<2.0) mg/dL Add Ur Microanalysis Reviewed Leukocyte Esterase Rfl Negative (Negative) YUDI/UL Urine RBC 11-20 H (0-2) /hpf Urine WBC 0-5 (0-3) /hpf Ur Squamous Epith Cells Few (Few) /hpf Urine Bacteria None seen /hpf Urine Casts 11-20 Influenza A (RT-PCR) (Negative) Influenza B (RT-PCR) (Negative) RSV (RT-PCR) (Negative) SARS-CoV-2 RNA (RT-PCR) (Negative) <Israel Maldonado MD - Last Filed: 06/19/24 07:20> Imaging Data Radiologist's impression: ITS Impressions Chest X-Ray 06/18/24 20:40 IMPRESSION: Left basilar atelectasis versus pneumonia. CT abdomen/pelvis: Hepatic steatosis and nodular contour suggesting cirrhosis. No evidence of cholelithiasis or cholecystitis. Distal gastric/pyloric mural thickening and adjacent stranding may reflect underlying gastritis/ulcer disease. No free air or ascites. No bowel obstruction. Normal appendix. Diverticulosis. No hydronephrosis or renal calculus. Urinary bladder wall thickening, nonspecific. Correlate with urinalysis. Patchy left basilar ground-glass/nodular infiltrates, may reflect infection/inflammation and/or aspiration. Distal esophageal diverticulum with food stuff or contained perforation. Fat containing umbilical hernia. Bilateral sacroiliac joint arthropathy ITS Impressions Chest X-Ray 06/18/24 20:40 IMPRESSION: Left basilar atelectasis versus pneumonia. Abdomen/Pelvis CT 06/19/24 06:04 Impression: Possible minimally nodular contour of liver. Correlate for cirrhotic change. Left basilar consolidation is suspicious for left lower lobe pneumonia. Moderate fat-containing umbilical hernia. <Pricila Juarez PA-C - Last Filed: 06/20/24 18:15> Critical Care Time Critical Care Time Critical Care Time: Yes <Pricila Juarez PA-C - Last Filed: 06/20/24 18:15> Total Critical Care Time: 35 <Pricila Juarez PA-C - Last Filed: 06/20/24 18:15> Discharge Plan Discharge Clinical Impression: Acute kidney injury, Esophageal diverticulum Gastritis Qualifiers: Gastritis type: unspecified gastritis Chronicity: acute Gastritis bleeding: without bleeding Qualified Code(s): K29.00 - Acute gastritis without bleeding Left lower lobe pneumonia Qualifiers: Pneumonia type: due to unspecified organism Qualified Code(s): J18.9 - Pneumonia, unspecified organism <Pricila Juarez PA-C - Last Filed: 06/20/24 18:15> Patient Disposition: Home, Self-Care <KARTHIK Ortega Last Filed: 06/20/24 18:15> Condition: Stable <KARTHIK Ortega Last Filed: 06/20/24 18:15> Instructions: Antibiotic Form, Dehydration (ED), Abdominal Pain (ED) <KARTHIK Ortega Last Filed: 06/20/24 18:15> Additional Instructions: CT scan shows that there is a diverticula or a pouch on your esophagus it is recommended that you follow-up with your primary care provider you may need to follow up with GI in the future <KARTHIK Ortega Last Filed: 06/20/24 18:15> Patient Language: Dutch <KARTHIK Ortega Last Filed: 06/20/24 18:15> Prescriptions: New azithromycin 250 mg tablet See Rx Instructions .ROUTE .COMPLEX Qty: 6 0RF Rx Instructions: For 250 mg dose pack: take 500 mg today (day 1), then 250 mg for 4 days (days 2-5) amoxicillin 500 mg capsule 1,000 mg PO Q8H 5 Days Qty: 30 0RF No Action ipratropium bromide 21 mcg (0.03 %) spray,non-aerosol 2 spray NASAL BID Qty: 30 0RF Rx Instructions: administer into each nostril azelastine 137 mcg (0.1 %) aerosol,spray 137 mcg intranasal Q12H Qty: 30 0RF Rx Instructions: administer into each nostril nitroglycerin [Nitrostat] 0.4 mg tablet, sublingual 0.4 mg SUBLINGUAL Q5M PRN (Reason: Chest Pain) Qty: 10 1RF Rx Instructions: until response; do not exceed 3 doses per episode albuterol sulfate 90 mcg/actuation HFA aerosol inhaler See Rx Instructions .ROUTE .COMPLEX Qty: 25.5 2RF Dose Instruction: INHALE 2 PUFFS BY MOUTH FOUR TIMES DAILY NEEDED FOR SHORTNESS OF BREATH OR WHEEZING Rx Instructions: INHALE 2 PUFFS BY MOUTH FOUR TIMES DAILY NEEDED FOR SHORTNESS OF BREATH OR WHEEZING hydrocodone-acetaminophen 5-325 mg tablet 1 tablet PO Q6H PRN (Reason: pain) Qty: 30 0RF Savella 50 mg tablet 50 mg PO BID Qty: 60 1RF <Pricila Juarez PA-C - Last Filed: 06/20/24 18:15> Follow-up/Referrals: Sudeep Purvis MD [Primary Care Provider] - <Pricila Juarez PA-C - Last Filed: 06/20/24 18:15> Time of Disposition: 07:20 <Pricila Juarez PA-C - Last Filed: 06/20/24 18:15> 07:20 <Israel Maldonado MD - Last Filed: 06/19/24 07:20>
[2024-06-18 20:58] LABS: Alanine Aminotransferase 237 U/L (6-50); Albumin Level 3.9 g/dL (3.5-5.1); Alkaline Phosphatase 136 U/L (38-126); Anion Gap 15 mmol/L (4-12); Aspartate Amino Transferase 237 U/L (17-59); Bilirubin,Total 0.9 mg/dL (0.2-1.3); Blood Urea Nitrogen 52 mg/dL (9-20); Calcium 9.9 mg/dL (8.4-10.2); Carbon Dioxide 21 mmol/L (22-30); Chloride 100 mmol/L (98-107); Estimated CRCL calculation 48 ml/min; Estimated Glomerular Filt Rate 41; Glucose 117 mg/dL (65-110); Lipase 173 U/L (23-300); Potassium 4.2 mmol/L (3.4-5.0); Sodium 136 mmol/L (137-145)
[2024-06-18 21:04] LABS: Add Urine Microscopic? YES; Appearance Urine Cloudy (Clear); Bacteria Urine None Seen /hpf; Bilirubin Urine Negative (Negative); Blood Urine 2+ (Negative); Color Urine Dark Yellow (Yellow); Glucose Urine UA Negative (Negative); Ketones Urine Trace mg/dL (Negative); Leukocyte Esterase Ur Negative LEU/UL (Negative); Need Manual Microscopic Reviewed; Nitrate Urine Negative (Negative); Protein Urine Trace mg/dL (Negative); Specific Grav Ur 1.017 (1.001-1.035); Squamous Epithelial Cell Urine Few /hpf (Few); WBC Urine 0-5 /hpf (0-3)
[2024-06-18] MEDS: SODIUM CHLORIDE 0.9% IV 500 ML 999 ML IV CONT ×2 (21:18→23:01)
[2024-06-18 22:59] LABS: Creatine Kinase 73 U/L (55-170)
[2024-06-19] VITALS (7 sets, daily range): BP systolic 122–142; BP diastolic 64–87; PULSE 68–88; RESP 16–18; TEMP 36.4; O2SAT 96–100
[2024-06-19] MEDS: SODIUM CHLORIDE 0.9% IV 1,000 ML 125 ML IV CONT (03:51)
[2024-06-19] MEDS: PANTOPRAZOLE SODIUM IV 40 MG VIAL IV PUSH (03:51)
[2024-06-19] MEDS: AZITHROMYCIN 500 MG/NS 250 ML 500 MG/250 ML BAG 250 MG IVPB (03:58)
--- NOTE | 2024-06-19 04:14 | PC.NURSE ---
Pt moved from room 20 to room 4 at this time. Report given to MICHELE Hinojosa.
--- NOTE | 2024-06-19 04:29 | PC.NURSE ---
Per [facility] to place patient on 2L via NC since patient sleeps with cpap at night.
--- NOTE | 2024-06-19 04:38 | PC.NURSE ---
This RN spoke to [facility] whom states beds are available on floor pt is going to. [facility] center reports it may be a few hours for bed assignment.
== END 2024-06-19 07:35 | disposition home or self-care (01) ==
PROVIDERS: Emergency Provider Physician Assistant; PCP Family Medicine
DX: N17.9 Acute kidney failure, unspecified (principal); J18.9 Pneumonia, unspecified organism; K29.00 Acute gastritis without bleeding; K22.5 Diverticulum of esophagus, acquired; Z20.822 Contact with and (suspected) exposure to COVID-19; I25.10 Atherosclerotic heart disease of native coronary artery without angina pectoris; F17.210 Nicotine dependence, cigarettes, uncomplicated; Z86.16 Personal history of COVID-19; Z79.899 Other long term (current) drug therapy
CPT/HCPCS: 36415; 71046; 74177; 80053; 81001; 82550; 83690; 85025; 87040; 87637; 96361; 96365; 96367; 96375; 99284; J0456; J0696; J2470; J7030; J7040; Q9967